=== PATIENT | male | born 1940 ===

== ENCOUNTER 2018-02-10 17:28 | Emergency (ER) | payer MEDICARE ==
--- NOTE | 2018-02-10 19:10 | Emergency Department Report ---
ED Abdominal Pain HPI - General Chief Complaint: Abdominal Pain Stated Complaint: ABD PAIN Time Seen by Provider: 02/10/18 18:59 Source: patient, old records reviewed Mode of arrival: Stretcher Limitations: Physical Limitation - History of Present Illness Initial Comments: Patient is 78 years old male with history of diabetes, renal failure, chronic anemia, CHF and hypertension and gout. Patient brought to the ER via EMS for evaluation of left lower quadrant abdominal pain as being on for 2-3 days. Patient denied any nausea or vomiting. He stated that he does have diarrhea watery no blood. Patient denied any chest pain or shortness of breath. MD Complaint: abdominal pain -: days(s) Location: LLQ Radiation: none Migration to: no migration Severity scale (0 -10): 4 Quality: sharp - Related Data Allergies Allergy/AdvReac Type Severity Reaction Status Date / Time No Known Allergies Allergy Verified 02/10/18 20:29 ED Review of Systems ROS: Stated complaint: ABD PAIN Other details as noted in HPI Comment: All other systems reviewed and negative Constitutional: denies: chills, fever ENT: denies: throat pain Respiratory: denies: cough, orthopnea, shortness of breath, SOB with exertion, SOB at rest, wheezing Cardiovascular: denies: chest pain, palpitations, dyspnea on exertion, orthopnea , paroxysmal nocturnal dyspnea Gastrointestinal: abdominal pain, diarrhea. denies: nausea, vomiting, constipation, hematemesis, melena, hematochezia Genitourinary: denies: urgency, dysuria, frequency, hematuria, testicular pain, testicular mass ED Past Medical Hx - Past Medical History Previous Medical History?: Yes Hx Hypertension: Yes Hx Congestive Heart Failure: Yes Hx Diabetes: Yes Hx Renal Disease: Yes Additional medical history: gout - Surgical History Additional Surgical History: left BKA - Social History Smoking Status: Former Smoker Substance Use Type: None ED Physical Exam - General Limitations: Physical Limitation General appearance: alert, in no apparent distress - Head Head exam: Present: atraumatic, normocephalic, normal inspection - Eye Eye exam: Present: normal appearance, PERRL - ENT ENT exam: Present: normal exam, normal orophraynx, mucous membranes moist - Neck Neck exam: Present: normal inspection, full ROM. Absent: tenderness, meningismus, lymphadenopathy - Respiratory Respiratory exam: Present: normal lung sounds bilaterally. Absent: respiratory distress, wheezes, rales, rhonchi, chest wall tenderness, accessory muscle use, decreased breath sounds, prolonged expiratory - Cardiovascular Cardiovascular Exam: Present: regular rate, normal rhythm, normal heart sounds - GI/Abdominal GI/Abdominal exam: Present: soft, tenderness (left lower quadrant), normal bowel sounds. Absent: distended, guarding, rebound, rigid, mass, bruit, pulsatile mass, hernia - Extremities Exam Extremities exam: Present: normal inspection, full ROM. Absent: tenderness - Back Exam Back exam: Present: normal inspection, full ROM. Absent: tenderness, CVA tenderness (R), CVA tenderness (L), muscle spasm - Neurological Exam Neurological exam: Present: alert, oriented X3, CN II-XII intact - Skin Skin exam: Present: warm, intact, normal color ED Course Vital Signs 02/10/18 02/10/18 02/10/18 17:51 19:30 20:00 Temperature 97.7 F Pulse Rate 65 Respiratory 20 Rate Blood Pressure 157/79 154/72 155/81 O2 Sat by Pulse 97 96 95 Oximetry 02/10/18 02/10/18 02/10/18 20:30 20:52 21:00 Temperature Pulse Rate 68 Respiratory 20 22 Rate Blood Pressure 175/85 152/72 O2 Sat by Pulse 90 97 97 Oximetry - Reevaluation(s) Reevaluation #1: 02/11/18 00:02 Patient is stated that he is feeling much better. Still denying any nausea or vomiting. Patient stated that his been having diarrhea, watery no blood. No mucus. I advised patient to follow up with his primary care physician in the next 2-3 days. I informed patient and family about his CT abdomen and pelvis results. ED Medical Decision Making - Lab Data Result diagrams: 02/10/18 19:18 02/10/18 19:18 - Radiology Data Radiology results: report reviewed Referring Physician: JAE LAND Patient Name: RACIEL BASILIO Date of : 1940 Sex: Male Report Date: 2018-02-10 Report Status: Finalized Findings [facility] [address] [place] [address] Cat Scan Report Signed Patient: RACIEL BASILIO MR#: [id number] : 1940 Acct:[id number] Age/Sex: 78 / M ADM Date: 02/10/18 Loc: ED Attending Dr: Ordering Physician: JAE LAND Date of Service: 02/10/18 Procedure(s): CT abdomen pelvis wo con Accession Number(s): [id number] cc: JAE LAND FINAL REPORT PROCEDURE: CT ABDOMEN PELVIS WO CON TECHNIQUE: Computerized axial tomography of the abdomen and pelvis was performed without intravenous contrast. This study is performed without intravascular contrast material and its sensitivity for abdominal and pelvic pathology, including neoplasms, inflammation, abscess, free fluid, thrombosis, arterial dissection and infarction, is reduced compared with a contrast enhanced study. HISTORY: ABDOMINAL PAIN,LLQ PAIN COMPARISON: No prior studies are available for comparison. FINDINGS: Prominent interstitial markings are noted in the visualized lower lungs. Subpleural bullous formation is noted involving the right lower lung largest measuring 2.5 centimeters in diameter. Subsegment atelectatic changes are noted involving bilateral lower lungs. Extensive pleural calcification is noted involving the visualized right lower pleura. Mild degree left basal pleural calcification is noted. There is moderate degree left pleural effusion. Splenic size is upper limit of normal liver, pancreas and adrenal glands are within normal limits. Bilateral kidneys demonstrate cystic lesions 1 on each side larger measuring 3.3 centimeters located in the midpole right kidney. There are no calculi or hydronephrosis. Urinary bladder is minimally filled with normal outlines. Aorta is of normal caliber. Right common iliac is 16 millimeters in diameter and left common iliac is 13 millimeters in diameter. Minimal degree of free fluid is noted in the paracolic gutters. There is no free air. Gallbladder is contracted with evidence of calculi measuring up to 10 millimeters. Small bowel loops are within normal limits. Moderate degree residual stool is noted. There is moderate prostatomegaly. Mild to moderate degree degenerative changes are noted involving the lumbar spine. Erosive changes are noted involving the vertebral endplates at T11-12 mid adjacent sclerotic changes of the vertebral bodies.. IMPRESSION: This study is limited due to lack of contrast. Bilateral pleural calcification Left pleural effusion Splenic size is upper limit of normal Cholelithiasis with contracted gallbladder. Ultrasound evaluation with 6 hours fasting may be recommended. Minimal free fluid in the paracolic gutters Bilateral renal cysts which cannot be further evaluated on this noncontrast study. Moderate prostatomegaly Endplate erosive changes at T11-12 are suspicious for discitis. MRI pre and post contrast may be recommended for further evaluation.. Transcribed By: UBC Dictated By: LEONID GÓMEZ Electronically Authenticated By: LEONID GÓMEZ Signed Date/Time: 02/10/182234 DD/ 34 TD/TT: 02/10/182234 Critical care attestation.: If time is entered above; I have spent that time in minutes in the direct care of this critically ill patient, excluding procedure time. ED Disposition Clinical Impression: Abdominal pain, Diarrhea Disposition: DC-01 TO HOME OR SELFCARE Is pt being admited?: No Condition: Stable Instructions: Abdominal Pain (ED), Acute Diarrhea (ED) Referrals: ZELDA FRANCIS [Other] - 3-5 Days
[2018-02-10 19:47] LABS: Basophils # (Auto) 0.1 K/mm3 (0.0-0.1); Basophils % (Auto) 0.8 % (0.0-1.8); Eosinophils # (Auto) 0.1 K/mm3 (0.0-0.4); Eosinophils % (Auto) 1.3 % (0.0-4.3); Hemoglobin 8.2 gm/dl (11.8-15.2); Lymphocytes # (Auto) 2.9 K/mm3 (1.2-5.4); Lymphocytes % (Auto) 47.9 % (13.4-35.0); Mean Corpuscular HGB Conc 34 % (32-34); Mean Corpuscular Hemoglobin 29 pg (28-32); Mean Corpuscular Volume 86 fl (84-94); Monocytes # (Auto) 0.7 K/mm3 (0.0-0.8); Monocytes % (Auto) 10.8 % (0.0-7.3); Red Blood Count 2.78 M/mm3 (3.65-5.03); Red Cell Distribution Width 15.4 % (13.2-15.2)
[2018-02-10 20:02] LABS: Albumin 0.8 g/dL (3.9-5); Bilirubin,Direct 3.3 mg/dL (0-0.2)
[2018-02-10 20:24] LABS: Platelet Count 78 K/mm3 (140-440)
[2018-02-10 20:45] LABS: Calcium 8.4 mg/dL (8.4-10.2)
--- NOTE | 2018-02-10 22:39 | Cat Scan Report ---
FINAL REPORT PROCEDURE: CT ABDOMEN PELVIS WO CON TECHNIQUE: Computerized axial tomography of the abdomen and pelvis was performed without intravenous contrast. This study is performed without intravascular contrast material and its sensitivity for abdominal and pelvic pathology, including neoplasms, inflammation, abscess, free fluid, thrombosis, arterial dissection and infarction, is reduced compared with a contrast enhanced study. HISTORY: ABDOMINAL PAIN,LLQ PAIN COMPARISON: No prior studies are available for comparison. FINDINGS: Prominent interstitial markings are noted in the visualized lower lungs. Subpleural bullous formation is noted involving the right lower lung largest measuring 2.5 centimeters in diameter. Subsegment atelectatic changes are noted involving bilateral lower lungs. Extensive pleural calcification is noted involving the visualized right lower pleura. Mild degree left basal pleural calcification is noted. There is moderate degree left pleural effusion. Splenic size is upper limit of normal liver, pancreas and adrenal glands are within normal limits. Bilateral kidneys demonstrate cystic lesions 1 on each side larger measuring 3.3 centimeters located in the midpole right kidney. There are no calculi or hydronephrosis. Urinary bladder is minimally filled with normal outlines. Aorta is of normal caliber. Right common iliac is 16 millimeters in diameter and left common iliac is 13 millimeters in diameter. Minimal degree of free fluid is noted in the paracolic gutters. There is no free air. Gallbladder is contracted with evidence of calculi measuring up to 10 millimeters. Small bowel loops are within normal limits. Moderate degree residual stool is noted. There is moderate prostatomegaly. Mild to moderate degree degenerative changes are noted involving the lumbar spine. Erosive changes are noted involving the vertebral endplates at T11-12 mid adjacent sclerotic changes of the vertebral bodies.. IMPRESSION: This study is limited due to lack of contrast. Bilateral pleural calcification Left pleural effusion Splenic size is upper limit of normal Cholelithiasis with contracted gallbladder. Ultrasound evaluation with 6 hours fasting may be recommended. Minimal free fluid in the paracolic gutters Bilateral renal cysts which cannot be further evaluated on this noncontrast study. Moderate prostatomegaly Endplate erosive changes at T11-12 are suspicious for discitis. MRI pre and post contrast may be recommended for further evaluation..
[2018-02-11 02:41] VITALS: BP 162/84
== END 2018-02-11 03:00 | disposition home or self-care (01) ==
LOC: ED 17:28
DX: R19.7 Diarrhea, unspecified (principal); R10.32 Left lower quadrant pain; I11.0 Hypertensive heart disease with heart failure; I50.9 Heart failure, unspecified; E11.9 Type 2 diabetes mellitus without complications; Z87.891 Personal history of nicotine dependence
CPT/HCPCS: 36415; 74176; 80048; 80074; 83690; 85025; 87040; 99284